=== PATIENT | male | born 1995 | race Caucasian/White ===

== ENCOUNTER 2023-12-04 09:31 | Emergency (ER) | payer OTHER, SELFPAY ==
--- NOTE | ~2023-12-04 | CT_ITS ---
EXAMINATION: CT SOFT TISSUE NECK WITH CONTRAST CLINICAL INFORMATION: Possible foreign body COMPARISON: None. TECHNIQUE: Following the administration of 60 mL of Omnipaque 350 intravenous contrast, helical imaging was performed in the axial plane with generation of coronal and sagittal reformatted images. This CT examination was performed using dose optimization techniques as appropriate, variously including the following: *Automated exposure control. *Adjustment of mA and/or kV according to patient size (this includes techniques or standardized protocols for targeted exams where dose is matched to indication/reason for exam; i.e. extremities or head). *Use of iterative reconstruction technique. DLP: 855 mGy-cm. FINDINGS: The fat planes of the skull base and soft tissues of the nasopharynx are unremarkable. Leftward nasal septal deviation with bony spur impinging on the base of the left inferior nasal turbinate. The paranasal sinuses and mastoid air cells are well aerated. The temporomandibular joints are normal. The oral cavity, pharyngeal mucosal space, and larynx are normal. No radiopaque foreign body. The submandibular and parotid glands are normal. The thyroid gland is normal. No pathologic size criteria or morphologically suspicious cervical chain lymph nodes. The partially visualized lung apices are clear. Normal opacification of the major neck vessels. The osseous structures are intact without suspicious focal lesion. The imaged portions of the brain parenchyma are unremarkable. CT/CT soft tissue neck w IV con IMPRESSION: 1. No evidence of retained foreign body, as clinically queried. 2. Leftward nasal septal deviation with bony spur impinging on the base of the left inferior nasal turbinate.
[2023-12-04 09:35] VITALS: BP 174/106; PULSE 93; RESP 16; TEMP 36.8; O2SAT 98; BMI 31.2
--- NOTE | 2023-12-04 09:49 | ED_ITS ---
HPI - General Adult General Chief complaint: Skin/Abscess/Foreign Body Stated complaint: object stuck in throat Time Seen by Provider: 12/04/23 09:49 Source: patient Mode of arrival: ambulatory Limitations: no limitations History of Present Illness ED Provider: Eliza Romero PA-C HPI narrative: Patient is a 28 year old assigned male at with a history of chronically elevated bilirubin presenting to the emergency department today with concerns of a retained foreign body in his throat. Patient states that on 12/03/2023 at 1700 he had a magaly chew that felt as though it got stuck in his throat. Patient states that he still feels the urge to clear his throat. Patient states that he has been able to tolerate liquids without issue. Patient denies any dizziness, lightheadedness, abdominal pain, nausea, vomiting, fever, chills, blurry vision, double vision, loss of vision, chest pain, difficulty breathing, shortness of breath, back pain, night sweats, pain with urination, increased urinary frequency, increased urinary urgency, blood in his urine or stool, syncope or a near syncopal episode, recent trauma or falls, bowel incontinence, bladder incontinence, or any other complaints at this time. Severity: mild Relieving factors: none Exacerbating factors: none Associated symptoms: denies other symptoms Treatments prior to arrival: none Related Data Allergies Allergy/AdvReac Type Severity Reaction Status Date / Time No Known Allergies Allergy Verified 12/04/23 09:37 Review of Systems 2 Constitutional: Constitutional: Reports no additional constitutional complaints, Denies chills, Denies fever(s) and Denies night sweats Eyes: Eyes: Reports no additional eye complaints, Denies blurry vision, Denies change in vision, Denies diplopia, Denies eye discharge, Denies loss of vision and Denies eye pain ENT: Denies dizziness Comments: concern for retained foreign body in esophagus Cardiovascular: Cardiovascular: Reports no additional cardiovascular complaints, Denies chest pain, Denies lightheadedness, Denies Loss of Consciousness and Denies dyspnea Respiratory: Respiratory: Reports no additional respiratory complaints and Denies dyspnea Gastrointestinal: Gastrointestinal: Reports no additional gastrointestinal complaints, Denies abdominal pain, Denies melena, Denies hematochezia, Denies change in bowel habits and Denies change in stool character Genitourinary: Genitourinary: Reports no additional male genitourinary complaints, Denies hematuria, Denies oliguria, Denies difficulty urinating, Denies dysuria, Denies urinary frequency, Denies urinary hesitancy, Denies urinary incontinence and Denies urinary urgency Musculoskeletal: Musculoskeletal: Reports no additional musculoskeletal complaints, Denies numbness and Denies tingling Neurologic: Denies dizziness, Denies loss of vision, Denies numbness and Denies tingling Psychiatric: Psychiatric: Reports no additional psychiatric complaints Endocrine: Endocrine: Reports no additional endocrine complaints Hematologic/Lymphatic: Hematologic/Lymphatic: Reports no additional hematologic/lymphatic complaints Allergic/Immunologic: Allergic/Immunologic: Reports no additional allergic/immunologic complaints [facility] Past Medical History Attestation statement: The following information was validated with the patient. Source: old records reviewed and nursing notes reviewed Social History Social History Advance Directives: No Advance Directives Information Provided: Yes Physical Exam ED Vital Signs: Vital Signs - 24 hr 12/04/23 09:35 12/04/23 10:25 12/04/23 12:17 Temperature 98.3 F 98.1 F Pulse Rate 93 68 Respiratory Rate 16 16 Blood Pressure 174/106 H 144/91 H 143/92 H Pulse Oximetry 98 98 Oxygen Delivery Method Room Air Room Air 12/04/23 12:42 Temperature 98.1 F Pulse Rate 72 Respiratory Rate 16 Blood Pressure 130/92 H Pulse Oximetry 99 Oxygen Delivery Method Room Air BMI result Body Mass Index 31.2 Const General: cooperative, no acute distress, alert and awake Nutritional Appearance: well nourished Orientation/consciousness: patient oriented x3 Limitations: no limitations [facility] Head: Yes normal to inspection and Yes atraumatic Ears: hearing grossly normal bilaterally and external ears normal General nose exam: Normal external nose present, no nasal discharge noted and no epistaxis Face and sinus: Yes normal facial exam, No abrasion and No laceration Mouth: Normal oral and palatal mucosa present, no drooling and no muffled voice Eyes General: appearance normal, both eyes and all related structures Periorbital: periorbital findings normal Eyelids: Yes eyelids normal Conjunctivae: conjunctivae normal Pupils: Equal, round and reactive pupils present EOM: EOMs intact bilaterally Neck Neck: Yes normal visual inspection, Yes full ROM and Yes no lymphadenopathy Chest Chest palpation & inspection: normal inspection of the chest Resp Effort & Inspection: normal respiratory effort and able to speak in complete sentences GI Inspection: Yes normal to inspection Neuro General: patient oriented x3 and moves all extremities Cranial nerves: Yes Equal, round and reactive pupils present Cognition (Neuro): normal cognition Motor exam (neuro): 5/5 motor strength present throughout Sensory Exam: Normal double simultaneous stimulation for sensation Coordination: [id number] test normal Extrem General: Yes normal to inspection, Yes full ROM and Yes capillary refill normal Psych Appearance: grossly normal Mental Status: mental status grossly normal Affect: normal affect Attitude: cooperative Thought process: Normal thought process present Thought content: Normal thought content present Insight: Good insight present (Psych) Medications Administered Discontinued Medications Generic Name Dose Route Start Last Admin Trade Name Freq PRN Reason Stop Dose Admin Iohexol 100 ml 12/04/23 11:41 12/04/23 11:41 Iohexol 350 Mg/Ml 100 Ml Infus..Btl IV 12/04/23 11:42 60 ml ONCE ONE Administration Nitroglycerin 0.4 mg 12/04/23 09:58 12/04/23 10:25 Nitroglycerin 0.4 Mg Tab.Subl SUBLINGUAL 12/04/23 09:59 0.4 mg ONCE ONE Administration Pantoprazole Sodium 40 mg 12/04/23 10:00 12/04/23 10:25 Pantoprazole Sodium 40 Mg/10 Ml Vial IVPUSH 12/04/23 10:01 40 mg ONCE ONE Administration Medical Decision Making Medical Decision Making [facility] Narrative: Patient is a 28 year old assigned male at with a history of chronically elevated bilirubin presenting to the emergency department today with concerns of a retained foreign body in his throat. Patient's physical exam was unremarkable. Patient's blood work showed an elevated bilirubin which is chronic for the patient and he already follows with a GI specialist. Patient's soft tissue neck CT showed no acute process. I explained my physical exam findings as well as all test results to the patient. I answered all questions asked by the patient. Patient was able to tolerate multiple PO challenges while in the department. I stressed the importance of the patient taking his medication as prescribed. I stressed the importance of the patient following up with his primary care provider and his GI specialist. I stressed the importance of the patient returning to the emergency department immediately if his symptoms were to worsen or if he were to develop any dizziness, shortness of breath, difficulty breathing, chest pain, blurry vision, loss of vision, nausea, vomiting, abdominal pain, fever, chills, back pain, or any other complaints. Patient verbalized agreement and understanding with this treatment plan and discharge. Differential Diagnosis Differential Diagnoses: The differential diagnosis associated with the presentation includes Esophagitis Eosophageal injury Gastritis GERD Retained foreign body in the esophagus Food bolus Admission/Observation Consideration of admission/observation: Escalation of care including admission/observation considered Patient would have been admitted to the hospital had his work up had any findings where hospital admission was appropriate and his clinical presentation warranted hospital admission. Lab Data [facility] Lab Attestation statement: I reviewed the patient's lab results. My interpretation of these results are in the [facility] Rationale portion of this note. 12/04/23 10:05 12/04/23 10:43 Labs: Lab Results 12/04/23 12/04/23 Range/Units 10:05 10:43 WBC 10.1 (4.8-10.8) X10*3/uL RBC 5.25 (4.60-5.80) X10*6/uL Hgb 16.2 (14.0-18.0) g/dl Hct 44.0 (42.0-52.0) % MCV 83.8 (80.0-98.0) fL MCH 30.9 (27.0-33.0) pg MCHC 36.8 H (31.0-36.0) g/dl RDW 11.6 (11.0-16.0) % Plt Count 242 (160-400) X10*3/uL MPV 9.0 L (9.4-12.4) fL Immature Gran % (Auto) 0.4 (0.0-0.4) % Neut % (Auto) 70.6 (45-73) % Lymph % (Auto) 23.5 (20-40) % [place] % (Auto) 4.5 (2-11) % Eos % (Auto) 0.7 (0-4) % Baso % (Auto) 0.3 (0-2) % Lymph # (Auto) 2.4 (1.2-4.9) X10*3/uL [place] # (Auto) 0.5 (0.1-1.2) X10*3/uL Eos # (Auto) 0.1 (0.0-0.4) X10*3/uL Baso # (Auto) 0.0 (0.0-0.2) X10*3/uL Abs Immat Gran (auto) 0.04 H (0.00-0.03) X10*3/uL Absolute Neuts (auto) 7.1 (2.0-8.3) x10*3/uL Absolute Nucleated RBC 0.000 (0.0-0.012) X10*3/uL Nucleated RBC % (auto) 0.0 (0.0-0.2) /100WBC Sodium 142 (135-145) mmol/L Potassium 4.2 (3.3-5.1) mmol/L Chloride 106 (96-108) mmol/L Carbon Dioxide 27 (22-29) mmol/L Anion Gap 13 (12-20) BUN 8 L (9-16) mg/dL Creatinine 0.87 (0.5-1.4) mg/dL Estim Creat Clear Calc 157.8 Estimated GFR > 60 Random Glucose 121 H (60-115) mg/dL Calcium 10.3 H (8.4-10.2) mg/dL Magnesium 2.2 (1.6-2.6) mg/dL Total Bilirubin 2.8 H (0.0-1.0) mg/dL AST 44 H (5-37) U/L ALT 44 H (0-40) U/L Alkaline Phosphatase 48 (39-117) U/L Total Protein 8.1 H (6.5-8.0) g/dL Albumin 5.2 H (3.5-5.0) g/dL Independent Interpretation I performed an independent interpretation of an: CT Scan Interpretation: My interpretation is in agreement with the radiologist's impression of this imaging study. - EXAMINATION: CT SOFT TISSUE NECK WITH CONTRAST CLINICAL INFORMATION: Possible foreign body COMPARISON: None. TECHNIQUE: Following the administration of 60 mL of Omnipaque 350 intravenous contrast, helical imaging was performed in the axial plane with generation of coronal and sagittal reformatted images. This CT examination was performed using dose optimization techniques as appropriate, variously including the following: *Automated exposure control. *Adjustment of mA and/or kV according to patient size (this includes techniques or standardized protocols for targeted exams where dose is matched to indication/reason for exam; i.e. extremities or head). *Use of iterative reconstruction technique. DLP: 855 mGy-cm. FINDINGS: The fat planes of the skull base and soft tissues of the nasopharynx are unremarkable. Leftward nasal septal deviation with bony spur impinging on the base of the left inferior nasal turbinate. The paranasal sinuses and mastoid air cells are well aerated. The temporomandibular joints are normal. The oral cavity, pharyngeal mucosal space, and larynx are normal. No radiopaque foreign body. The submandibular and parotid glands are normal. The thyroid gland is normal. No pathologic size criteria or morphologically suspicious cervical chain lymph nodes. The partially visualized lung apices are clear. Normal opacification of the major neck vessels. The osseous structures are intact without suspicious focal lesion. The imaged portions of the brain parenchyma are unremarkable. CT/CT soft tissue neck w IV con IMPRESSION: 1. No evidence of retained foreign body, as clinically queried. 2. Leftward nasal septal deviation with bony spur impinging on the base of the left inferior nasal turbinate. Dictated By: Angle Rai Signed By: Electronically signed by Angle Rai 12/04/23 3434 Radiology Impression Discussion of test interpretation with radiology: I have reviewed the radiologist's reading. Discharge Plan Discharge Clinical Impression: Esophagitis Patient Disposition: Home, Self-Care Instructions: Esophagitis (ED) Additional Instructions: Follow up with your primary care provider. Return to the emergency department immediately if your symptoms worsen or if you develop any dizziness, shortness of breath, difficulty breathing, chest pain, blurry vision, loss of vision, nausea, vomiting, abdominal pain, fever, chills, back pain, or any other complaints. Referrals: [facility] [place] [facility] [place]Provider Group] (Call to establish and follow up with a primary care provider. If you already have a primary care provider, please follow up with them.) [facility] [place] [place] [facility] [[facility]] [facility] [place] [place] [facility] [Provider Group] Stand Alone Forms: Work/School Release Interventions: ED Discharge Assessment Last Done: 12/04/23 12:42 Discharge Date/Time: 12/04/23 12:44 Print Language: Pashto
[2023-12-04 10:08] LABS: MANUAL DIFF FLAG NO
--- NOTE | 2023-12-04 10:08 | PC.NURSE ---
Pt A+Ox4, lung sounds CTA bilaterally. Pt states feels magaly chew stuck in throat. Denies n/v/d/cp/SOB, states does have an intermittent cough and dysphagia while swallowing. Awaiting CT scan and Labs. Resting in bed quietly, call inman within reach.
[2023-12-04 10:09] LABS: Basophils Percent Auto 0.3 % (0-2); Eosinophils Absolute Auto 0.1 X10*3/uL (0.0-0.4); Eosinophils Percent Auto 0.7 % (0-4); Hemoglobin 16.2 g/dl (14.0-18.0); Imm Gran Abs Auto 0.04 X10*3/uL (0.00-0.03); Imm Gran Pct Auto 0.4 % (0.0-0.4); Lymphocytes Absolute Auto 2.4 X10*3/uL (1.2-4.9); Lymphocytes Percent Auto 23.5 % (20-40); Mean Corpuscular HGB Conc 36.8 g/dl (31.0-36.0); Mean Corpuscular Hemoglobin 30.9 pg (27.0-33.0); Mean Corpuscular Volume 83.8 fL (80.0-98.0); Monocytes Absolute Auto 0.5 X10*3/uL (0.1-1.2); Monocytes Percent Auto 4.5 % (2-11); Neutrophils Absolute Auto 7.1 x10*3/uL (2.0-8.3); Neutrophils Percent Auto 70.6 % (45-73); Platelet Count 242 X10*3/uL (160-400); Red Blood Count 5.25 X10*6/uL (4.60-5.80); Red Cell Distribution Width 11.6 % (11.0-16.0); White Blood Count 10.1 X10*3/uL (4.8-10.8)
[2023-12-04 10:25] VITALS: BP 144/91
[2023-12-04] MEDS: Nitroglycerin 0.4 MG TAB.SUBL SUBLINGUAL (10:25)
[2023-12-04] MEDS: Pantoprazole Sodium 40 MG/10 ML VIAL IVPUSH (10:25)
[2023-12-04 11:12] LABS: Alanine Aminotransferase 44 U/L (0-40); Albumin Level 5.2 g/dL (3.5-5.0); Alkaline Phosphatase 48 U/L (39-117); Anion Gap 13 (12-20); Aspartate Amino Transferase 44 U/L (5-37); Bilirubin Total 2.8 mg/dL (0.0-1.0); Blood Urea Nitrogen 8 mg/dL (9-16); Calcium 10.3 mg/dL (8.4-10.2); Carbon Dioxide 27 mmol/L (22-29); Chloride 106 mmol/L (96-108); Creatinine Clr Calc Pharmacy 157.8; Estimated Glomerular Filt Rate > 60; Glucose Random 121 mg/dL (60-115); Magnesium 2.2 mg/dL (1.6-2.6); Potassium 4.2 mmol/L (3.3-5.1); Sodium 142 mmol/L (135-145); Total Protein 8.1 g/dL (6.5-8.0)
[2023-12-04] MEDS: iohexoL 350 MG/ML 100 ML INFUS..BTL IV (11:41)
[2023-12-04 12:17] VITALS: BP 143/92; PULSE 68; RESP 16; TEMP 36.7; O2SAT 98
[2023-12-04 12:42] VITALS: BP 130/92; PULSE 72; RESP 16; TEMP 36.7; O2SAT 99
== END 2023-12-04 12:44 | disposition home or self-care (01) ==
PROVIDERS: Physician Assistant Medical; Emergency Provider Emergency Medicine Emergency Medical Services; PCP Pediatrics
DX: K20.80 Other esophagitis without bleeding (principal); R09.A2 Foreign body sensation, throat
CPT/HCPCS: 36415; 70491; 80053; 83735; 85025; 96374; 99284; C9113; Q9967